=== PATIENT | female | born 2000 | race African-American/Black ===

== ENCOUNTER 2020-07-19 11:43 | Emergency (ER) | payer OTHER, SELFPAY ==
[2020-07-19 12:27] VITALS: BP 139/78; PULSE 71; RESP 17; TEMP 36.2; O2SAT 100
--- NOTE | 2020-07-19 12:35 | ED.GENADULT ---
HPI - General Adult General Chief complaint: Unspecified Stated complaint: wants preg test Time Seen by Provider: 07/19/20 12:34 History of Present Illness HPI narrative: Patient is a 19-year-old female who comes to the ED today basically wanting a test and specifically requesting a blood test. She reports that for about a month now she has been having food cravings, urinary urgency without any dysuria. Feeling bloated. No pain. She went to an urgent care recently and had a urine test that was negative. Last menstrual period was June 12 through June 15 which was a bit earlier than normal for her. Notes she did take a Plan B on May 31 and also on May 07. Denies any known vaginal discharge. Otherwise denies any fevers or any other symptoms or concerns. Related Data Allergies Allergy/AdvReac Type Severity Reaction Status Date / Time No Known Allergies Allergy Unverified 04/14/18 15:01 Review of Systems Constitutional: Constitutional: Reports as per HPI, Denies fever(s), Denies night sweats and Denies weakness Cardiovascular: Cardiovascular: Denies chest pain, Denies edema, Denies leg edema, Denies dyspnea and Denies orthopnea Respiratory: Respiratory: Denies cough and Denies dyspnea Gastrointestinal: Gastrointestinal: Denies abdominal pain, Denies constipation, Denies diarrhea, Denies nausea and Denies vomiting Musculoskeletal: Musculoskeletal: Denies abnormal gait, Denies back pain, Denies numbness and Denies tingling Neurologic: Denies Abnormal speech present, Denies abnormal gait, Denies numbness, Denies tingling and Denies weakness Psychiatric: Psychiatric: Denies homicidal ideation and Denies suicidal ideation [facility] Social History Social History Gender identity (if verbalized by the patient): Female Exam Const: General: cooperative, healthy appearing, comfortable, no acute distress, well developed, alert, awake and Physically active Orientation/consciousness: patient oriented x3 Other: Well-appearing, pleasant, no distress HENMT: Head: normal to inspection, normocephalic and atraumatic Ears: external ears normal General nose exam: Normal external nose present Eyes: Pupils: Equal, round and reactive pupils present EOM: EOMs intact bilaterally Neck: Neck: normal visual inspection Chest: Chest palpation & inspection: normal inspection of the chest and no tenderness Resp: Effort & Inspection: normal respiratory effort and able to speak in complete sentences Auscultation: clear to auscultation bilaterally Cardio: Rate: regular rate Rhythm: regular rhythm GI: Inspection: normal to inspection GI Palp: No abdominal tenderness : General: Yes no CVA tenderness Back/Spine/Pelvis: Back: no CVA tenderness Skin: General skin exam: normal color and no rashes or lesions noted Lesions: no lesions Neuro: General: patient oriented x3, no focal motor deficits and CN's II-XI intact bilaterally Cranial nerves: Yes Equal, round and reactive pupils present Speech: No Abnormal speech present Extrem: General: normal to inspection and full ROM Psych: Appearance: grossly normal and well kempt Mental Status: mental status grossly normal Speech and movement: Normal speech and movement present Affect: normal affect Thought process: Normal thought process present Course Reevaluation(s) Reevaluation #1: Informed patient that urinalysis is clean and blood test is negative. Unclear cause to be abnormal timing of her cycles. Agreeable for plan for discharge and she can follow-up with her PCP or [facility] [facility] and return with any new symptoms. Date: 07/19/20 Time: 15:23 Vital Signs Vital signs: Vital Signs Temperature 36.2 C L 07/19/20 12:27 Pulse Rate 71 07/19/20 12:27 Respiratory Rate 17 07/19/20 12:27 Blood Pressure 139/78 07/19/20 12:27 Pulse Oximetry 100 07/19/20 12:27 Temperature 36.2 C L 07/19/20 12:27 Pulse Rate 65 07/19/20 14:24 Respir
--- NOTE | 2020-07-19 13:06 | PC.NURSE ---
Alyson Muñoz at bedside.
[2020-07-19 14:13] LABS: Add Urine Microscopic? YES; Appearance Urine Cloudy (Clear); Bacteria Urine Trace /hpf; Bilirubin Urine Negative (Negative); Blood Urine Negative (Negative); Color Urine Yellow (Yellow); Glucose Urine UA Negative (Negative); Ketones Urine Trace mg/dL (Negative); Leukocyte Esterase Ur Negative LEU/UL (Negative); Mucus Urine Heavy /lpf; Nitrate Urine Negative (Negative); Protein Urine Negative (Negative); RBC Urine 0-2 /hpf (0-2); Squamous Epithelial Cell Urine Moderate /hpf (Few); Urobilinogen Urine Negative mg/dL (<2.0); WBC Urine 0-3 /hpf
[2020-07-19 14:24] VITALS: BP 118/79; PULSE 65; RESP 16; O2SAT 100
--- NOTE | 2020-07-19 14:35 | PC.NURSE ---
Pt family at nurses station because pt has class to be at, and we haven't heard anything family and pt informed of awaiting results of bloodwork. Pt and family report they will stay at this time and inform rn if they decide to leave.
[2020-07-19 15:07] LABS: Beta HCG Quantitative < 2.39 mIU/ML
--- NOTE | 2020-07-19 15:17 | PC.NURSE ---
GEORGE Muñoz at bedside for results.
--- NOTE | 2020-07-19 15:20 | PC.NURSE ---
Pt at nurses station states I'm leaving, I've been here too long, he said I was good and never brought my paperwork. This RN went to [place] and obtained d/c instructions.
[2020-07-19 15:30] VITALS: BP 118/75; PULSE 72; RESP 18; O2SAT 100
== END 2020-07-19 15:31 | disposition home or self-care (01) ==
PROVIDERS: Physician Assistant Medical; Emergency Provider Emergency Medicine; PCP Emergency Medicine
DX: N92.6 Irregular menstruation, unspecified (principal)
CPT/HCPCS: 36415; 81001; 84702; 99283